=== PATIENT | female | born 1950 | race Caucasian/White ===

== ENCOUNTER → 2018-01-23 | Outpatient (CLI) | payer MEDICARE | LOC: CFH 06:51 | PROVIDERS: ATTEND Physician Assistant Surgical | DX: M16.11 Unilateral primary osteoarthritis, right hip (principal); D17.79 Benign lipomatous neoplasm of other sites; M25.852 Other specified joint disorders, left hip ==

== ENCOUNTER 2021-03-28 07:26 | Emergency (ER) | payer MEDICARE ==
[~2021-03-28] VITALS: Ht 157.5 cm; Wt 58.0 kg
--- NOTE | 2021-03-28 08:17 | NUR ---
Pt to imaging.
[2021-03-28 08:42] VITALS: BP 135/42
--- NOTE | 2021-03-28 08:42 | NUR ---
Jay LAI, back to bedside to update pt on imaging results, POC including D/C.
== END 2021-03-28 09:16 | disposition home or self-care (01) ==
LOC: ED 08:48
DX: M17.11 Unilateral primary osteoarthritis, right knee (principal); Z96.642 Presence of left artificial hip joint
CPT/HCPCS: 99283